=== PATIENT | female | born 1980 | race African-American/Black ===

== ENCOUNTER → 2017-03-24 | Day surgery (SDC) | payer OTHER ==
[~2017-03-24] VITALS: Ht 162.6 cm; Wt 110.2 kg
--- NOTE | 2017-03-24 09:43 | Operative Report ---
Operative/Inv Procedure Report Surgery Date: 03/24/17 Name of Procedure: Hysteroscopy, dilation and curettage Polypectomy Pre-Operative Diagnosis: Menorrhagia Post-Operative Diagnosis: Menorrhagia Endometrial polyps Estimated Blood Loss: less than 50ml Surgeon/Lgsw: Rosina Stringer MD Anesthesia: moderate sedation IV Fluids: Lactated Ringer's Urine Output: straight cath 100 mL clear urine at the beginning of the procedure Specimens: Endometrial polyp EMC Complications: None Condition: Stable Operative Indication: 36-year-old, menorrhagia, ultrasound showed questionable endometrial polyp Operative/Procedure Note Note: The patient was taken to the operating room where moderate sedation was obtained without difficulty. The patient was then examined under anesthesia and found to have a anteverted uterus with normal adnexa. She was then placed in the dorsal lithotomy position and prepared and draped in the usual sterile fashion. A bivalve speculum was then placed in the patient's vagina and the anterior lip of the cervix grasped with the single-toothed tenaculum. The cervix was dilated to accommodate a diagnostic hysteroscope. Hysteroscope was inserted into the uterine cavity, 2 small polyps were noted, one at anterior uterine wall and one at the posterior uterine wall. Hysteroscope was withdrawn from the uterine cavity, polyp forceps was used to remove the polyps. A sharp curettage was then performed until gritty texture was noted. There was minimal bleeding noted and the tenaculum removed, silver nitrate was used to achieve excellent hemostasis on the cervix. The patient tolerated the procedure well. Laps, instruments counts were correct. The patient was taken to the recovery room in stable condition. Findings: Anteverted uterus, 1 polyp noted and anterior uterine wall, 1cm in size, another small polyp noted at the posterior uterine wall,0.7cm in size. Normal looking endometrium.
== END ==
LOC: STS 04:38
DX: N84.0 Polyp of corpus uteri (principal); N92.0 Excessive and frequent menstruation with regular cycle
CPT/HCPCS: 36415; 81025; J0131; J2250